=== PATIENT | female | born 1980 | race Hispanic/Latino ===

== ENCOUNTER 2018-07-25 17:25 | Inpatient (IN) | payer SELFPAY ==
[2018-07-25 18:11] LABS: #Eosinphils 0.1 thou/uL (0.0-0.7); #Lymphocytes 0.9 thou/uL (1.20-3.40); #Monocytes 0.4 thou/uL (0.11-0.59); #Neutrophils 2.7 thou/uL (1.40-6.50); %Basophils 0.7 % (0.0-1.0); %Eosinophils 1.3 % (0.0-10.0); %Lymphocytes 21.1 % (21.0-51.0); %Monocytes 9.3 % (0.0-10.0); %Neutrophils 67.6 % (42.0-75.0); Hemoglobin 11.7 g/dL (12.0-16.0); Mean Corpuscular HGB CONC 32.7 g/dL (32.0-36.0); Mean Corpuscular Hemoglobin 28.8 pg (27.0-31.0); Mean Corpuscular Volume 88.3 fL (78.0-98.0); Mean Platelet Volume 8.5 fL (7.4-10.4); Platelet Count 194 thou/uL (130-400); RBC Distribution Width 12.2 % (11.5-14.5); Red Blood Cell (RBC) Count 4.07 mill/uL (4.20-5.40)
[2018-07-25 19:07] LABS: ALT (SGPT) 11 U/L (8-55); AST (SGOT) 12 U/L (5-34); Albumin 4.4 g/dL (3.5-5.0); Alkaline Phosphatase 103 U/L (40-150); BUN (Urea Nitrogen) 55 mg/dL (7.0-18.7); Bilirubin, Total 0.2 mg/dL (0.2-1.2); Calc. Creatinine Clearance 0 mL/min (70-130); Carbon Dioxide 18 mmol/L (22-29); Chloride 108 mmol/L (98-107); Estimated GFR-MDRD 11; Globulin 3.5 g/dL (2.4-3.5); Glucose 87 mg/dL (70-105); Potassium 4.7 mmol/L (3.5-5.1); Protein, Total 7.9 g/dL (6.0-8.3); Sodium 136 mmol/L (136-145)
[2018-07-25 19:24] LABS: Bilirubin Negative (Negative); Blood, Urine Moderate (Negative); Clarity CLEAR (Clear); Glucose, Urine (Dipstick) Negative (Negative); Leukocyte Trace (Negative); Nitrite Negative (Negative); Protein, Urine (Dipstick) 100 mg/dL (Neg-Trace); Specific Gravity, Urine 1.007 (1.002-1.036); Urobilinogen 0.2 mg/dL (0.2-1.0)
[2018-07-25 19:28] LABS: Bacteria/HPF None Seen HPF (None Seen); Hyaline Casts/LPF 4-6 HYALINE CAST LPF (0-3 Hyaline); Squamous Epithelial 0-3 HPF (0-3); WBC/HPF 0-3 HPF (0-3)
[2018-07-25 19:42] LABS: Anion Gap 15 mmol/L (10-20)
[2018-07-25 20:14] LABS: Protein, Urine Random Quant 99 mg/dL (1-14); Sodium, Urine 62 mmol/L (Not Available)
[2018-07-25] MEDS ORDERED: Acetaminophen 325 MG TAB PO PRN (22:07)
[2018-07-25] MEDS ORDERED: Ondansetron PF 4 MG/2 ML Vial IVP PRN (22:07)
[2018-07-25] MEDS ORDERED: Ondansetron ODT 4 MG TAB SL PRN (22:07)
[2018-07-25 22:26] VITALS: BMI 21.0
[2018-07-25] MEDS: Sodium Chloride 0.45% 1,000 ML IV SCH ×2 (22:36→23:29)
--- NOTE | 2018-07-25 23:08 | ULT ---
RENAL SONOGRAM 07/25/18 HISTORY: Acute renal failure. FINDINGS: The right kidney measures 0.3 cm x 4.3 cm. The left kidney is smaller in size measuring 7.5 cm x 3.9 cm. There does appear to be mild renal cortical thinning and echogenic appearance of the renal cortex bilaterally which can be seen with chronic medical renal disease. There is no evidence of hydronephrosis, and no definite renal calculus is present. There is an anecho ic approximately 2.1 cm cystic lesion at the inferior pole right kidney demonstrating characteristics most compatible with a renal cyst. The urinary bladder has a normal sonographic appearance. IMPRESSION: 1. Mild renal cortical thinning and echogenic appearance of the renal cortex which can be seen w ith chronic medical renal disease. 2. Right renal cyst. 3. No evidence of hydronephrosis. POS: MAYRA
--- NOTE | 2018-07-26 00:27 | PDOC.EVN ---
Event Note - Event Note Event Note: h&p dictated [id number]
--- NOTE | 2018-07-26 01:11 | HP ---
DATE OF ADMISSION: 07/25/2018 PRIMARY CARE PHYSICIAN: Dr. Tulio Sharma. CHIEF COMPLAINT: Acute renal failure. 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 At the time of my evaluation, the patient's only positive history that over the last month, she has b een having increasing fatigability. REVIEW OF SYSTEMS: As per HPI. Constitutional: Denies any fevers, chills, or significant weight ch anges. HEENT: Denies any new headaches, vision changes, lightheadedness, or dizziness. Cardiovascu lar: Denies any chest pain, chest pressure, left-sided arm numbness, or tingling. Respiratory: Den ies any shortness of breath, cough, congestion, recent upper respiratory infection. Gastrointestinal : Denies any issues with nausea, vomiting, abdominal pain, diarrhea, or constipation. Genitourinary : Denies any dysuria, changes in his urinary frequency, quality, color or odor. Musculoskeletal: D enies any new myalgias or arthralgias. PAST MEDICAL HISTORY: As per HPI and significant for chronic renal disease, hypertension, prior hist ory of tubal ligation. HOME MEDICATIONS: Significant for some "blood pressure medications, which are currently not in the E MR" and the patient does not recall off the top of her head. ALLERGIES: No known drug allergies. FAMILY HISTORY: Patient denies any known family history of renal disease, renal failure, or urinary issues. SOCIAL HISTORY: Patient denies any alcohol, tobacco, or illicit drug use. PHYSICAL EXAMINATION: GENERAL: The patient is awake, alert, conversant, lying in the hospital bed. HEENT: Normocephalic, atraumatic. Equal ocular motions are intact, moist mucous membranes. CARDIOVASCULAR: S1, S2. No murmurs, rubs, or gallops. Pulses 2+ bilateral upper extremities, no pi tting pedal edema. RESPIRATORY: Reasonable air movement. No conversational dyspnea. No wheezes, rales, or rhonchi and grossly clear to auscultation bilaterally. GASTROINTESTINAL: Positive bowel sounds. Soft, nontender to palpation. GENITOURINARY: No CVA tenderness. LABORATORY DATA AND IMAGING: WBC 4.0, hemoglobin 11.7, hematocrit 35.9, platelets of 194. Sodium 13 6, potassium 4.7, chloride 108, bicarb 18, BUN 55, creatinine 4.53, glucose 87, calcium 9.8. Total b ilirubin 0.2, AST 12, ALT 11, alkaline phosphatase 103, total protein 7.9, albumin 4.4. UA is signif icant for 100 of protein, moderate blood, trace leukoesterase, 7-10 rbc's, 4-6 hyaline casts, 99 tota l protein, 31.18 urine creatinine. ASSESSMENT AND PLAN: This is a 38-year-old female presenting with acute kidney injury on chronic jose al disease. Patient currently has normal saline 75 mL an hour, running. Close intake and output. I appreciate Nephrology consultation. Repeat electrolytes, renal function panel in the morning. Che k ultrasound of the renal, bilaterally. Also, check a urine test. 1. Hypertension. Continue to monitor the patient's blood pressure, initiate antihypertensive regime n as needed. 2. Diet: Renal. 3. Activity: As tolerated. 4. Deep venous thrombosis prophylaxis with heparin. Admit the patient to inpatient.
[2018-07-26 05:47] LABS: Pregnancy Test - Urine (BHCG) Negative (Negative); Pregu Control Background? CLEAR/WHITE (CLR/WHITE); Pregu Control Bar Appear? YES (CONTROL BAR); Specific Gravity 1.008 (1.002-1.036)
[2018-07-26 06:05] LABS: #Eosinphils 0.1 thou/uL (0.0-0.7); #Lymphocytes 0.9 thou/uL (1.20-3.40); #Monocytes 0.5 thou/uL (0.11-0.59); #Neutrophils 2.9 thou/uL (1.40-6.50); %Basophils 1.1 % (0.0-1.0); %Eosinophils 2.2 % (0.0-10.0); %Lymphocytes 19.6 % (21.0-51.0); %Monocytes 10.5 % (0.0-10.0); %Neutrophils 66.6 % (42.0-75.0); Hemoglobin 10.8 g/dL (12.0-16.0); Mean Corpuscular HGB CONC 33.2 g/dL (32.0-36.0); Mean Corpuscular Hemoglobin 29.2 pg (27.0-31.0); Mean Corpuscular Volume 88.2 fL (78.0-98.0); Mean Platelet Volume 8.9 fL (7.4-10.4); Platelet Count 188 thou/uL (130-400); Red Blood Cell (RBC) Count 3.69 mill/uL (4.20-5.40); White Blood Cell (WBC) Count 4.4 thou/uL (4.8-10.8)
[2018-07-26 06:21] LABS: Anion Gap 10 mmol/L (10-20); BUN (Urea Nitrogen) 56 mg/dL (7.0-18.7); Calc. Creatinine Clearance 15 mL/min (70-130); Calcium 8.5 mg/dL (7.8-10.44); Carbon Dioxide 20 mmol/L (22-29); Chloride 109 mmol/L (98-107); Estimated GFR-MDRD 11; Glucose 90 mg/dL (70-105); Magnesium 2.3 mg/dL (1.6-2.6); Phosphorus 4.8 mg/dL (2.3-4.7); Potassium 4.5 mmol/L (3.5-5.1); Sodium 134 mmol/L (136-145)
[2018-07-26] MEDS ORDERED: Epoetin (ESRD) 20,000 UNITS/ML SC SCH (09:00)
[2018-07-26] MEDS: Heparin 5,000 UNITS/ML VIAL SC SCH ×3 (09:03→20:09)
[2018-07-26] MEDS: NIFEdipine XL 30 MG TAB PO SCH (10:50)
--- NOTE | 2018-07-26 10:55 | PDOC.PN ---
- Subjective Encounter Start Date: 07/26/18 Encounter Start Time: 10:45 Subjective: f/u for JENI/CKD with current IVF's. No current complaints. No home BP -: meds until 48h prior to admit per family report. - Objective Resuscitation Status: Resuscitation Status FULL:Full Resuscitation MAR Reviewed: Yes Vital Signs & Weight: Vital Signs (12 hours) Temp Pulse Resp BP Pulse Ox 07/26/18 07:34 97.9 F 79 18 132/83 98 07/26/18 05:29 98.0 F 87 18 122/81 98 Weight Weight 122 lb 11.2 oz I&O: 07/25/18 07/26/18 07/27/18 06:59 06:59 06:59 Intake Total 1160 Balance 1160 Result Diagrams: 07/26/18 05:17 07/26/18 05:17 Additional Labs: Laboratory Tests 07/25/18 07/25/18 07/26/18 17:58 17:58 05:13 Hgb 11.7 L Sodium 136 Carbon Dioxide 18 L BUN 55 H Creatinine 4.53 H Phosphorus Magnesium Urine Test Negative 07/26/18 05:17 Hgb Sodium Carbon Dioxide BUN Creatinine Phosphorus 4.8 H Magnesium 2.3 Urine Test Radiology Reviewed by me: Yes (Renal sono - no acute process, obstruction) Phys Exam - Physical Examination Constitutional: NAD HEENT: PERRLA, sclera anicteric, oral pharynx no lesions Neck: no nodes, no JVD, supple, full ROM Respiratory: no wheezing, no rales, no rhonchi, clear to auscultation bilateral S1, S2 Cardiovascular: RRR, no significant murmur, no rub, gallop Gastrointestinal: soft, non-tender, no distention, positive bowel sounds Musculoskeletal: no edema, pulses present Neurological: normal sensation, moves all 4 limbs Psychiatric: normal affect, A&O x 3 Skin: no rash, normal turgor, cap refill <2 seconds Dx/Plan (1) JENI (acute kidney injury) Code(s): N17.9 - ACUTE KIDNEY FAILURE, UNSPECIFIED Status: Acute Comment: Likely multifactorial and progression of CKD due to untreated HTN, continue IVF' s, avoid nephrotoxic meds and limit contrast exposure (2) CKD (chronic kidney disease) stage 3, GFR 30-59 ml/min Code(s): N18.3 - CHRONIC KIDNEY DISEASE, STAGE 3 (MODERATE) Status: Chronic Comment: Appears to have progressed, Nephrology consulted, see above (3) HTN (hypertension) Code(s): I10 - ESSENTIAL (PRIMARY) HYPERTENSION Status: Chronic Qualifiers: Hypertension type: essential hypertension Qualified Code(s): I10 - Essential (primary) hypertension Comment: Titrate antihypertensive regimen, Clonidine/Hydralazine prn (4) Normocytic anemia Code(s): D64.9 - ANEMIA, UNSPECIFIED Status: Chronic Comment: Epo per Nephrology, FeSO4 daily - Plan plan discussed w/ family, social worker psychiatric, DVT proph w/SCDs Stable currently -: Continue NS @ 75ml/h -: Nephrology consult appreciated -: Titrate BP regimen to optimal response -: AM lab: BMP, CBC * .
[2018-07-26] MEDS ORDERED: Acetaminophen 500 MG TAB PO PRN (11:03)
[2018-07-26] MEDS ORDERED: Ondansetron ODT 4 MG TAB PO PRN (11:03)
[2018-07-26] MEDS ORDERED: hydrALAZINE 20 MG/ML VIAL SLOW IVP PRN (11:03)
--- NOTE | 2018-07-26 11:58 | CON ---
DATE OF CONSULTATION: 07/26/2018 HISTORY OF PRESENT ILLNESS: Ms. Gutierrez is a 38-year-old female with chronic renal failur e secondary to presumed chronic glomerulonephritis. Her last creatinine back in 2016 was 1.69. She has not been in the clinic since then. Due to financial reason, she is unable to do the workup for h er glomerulonephritis. However, a recent imaging showed there is already increased cortical echogeni city with the kidney and pinning of the cortex. The patient on close questioning is symptomatic. Nasrin mendieta has been having nausea and vomiting. Her appetite is decreased. Energy level is decreased. We are being consulted for her chronic renal failure. REVIEW OF SYSTEMS: Decreased appetite, decreased energy level. Positive for nausea and vomiting. N o diarrhea, no constipation, no abdominal pain, no headache, no diplopia, no syncopal episode, no pro ductive cough, no fever or chills, no dysuria, no urinary frequency. MEDICATIONS: amlodipine/benazepril 07/21 one tab daily - frequency, last dose is unknown. PAST MEDICAL HISTORY: 1. Chronic renal failure secondary to presumed chronic GN. 2. Hypertension. PAST SURGICAL HISTORY: None. SOCIAL HISTORY: The patient is , originally from [place], [place] for 9 years. She lives [facility] for the last 3-1/2 years. She has no history of smoking or alcohol intake. She is also of Education in high school, ? primary grade. No drug abuse. No blood transfusion. FAMILY HISTORY: No family history of ESRD. ALLERGIES: None. TRAUMA: None. IMMUNIZATIONS: Up to date. HOSPITALIZATIONS: Please see past medical history. PHYSICAL EXAMINATION: VITAL SIGNS: Blood pressure 132/83, heart rate 79, respiratory rate 18, temperature 97.9, and pulse ox 98%. GENERAL: Awake, alert, supine, lethargic, not in overt distress. SKIN: Adequate turgor. HEENT: She has pinkish, slightly pale conjunctivae, anicteric sclerae. NECK: No neck mass, no carotid bruits, no JVD. CHEST: No deformities. LUNGS: Clear breath sounds, no wheezing, no crackles. HEART: Normal sinus rhythm. No murmur, no gallops, no rubs. ABDOMEN: Globular, soft, nontender, no masses. EXTREMITIES: No edema, no deformities. NEUROLOGIC: Moving all extremities. No tremors, no asterixis, no ataxia. HOSPITAL MEDICATIONS: Heparin 5000 units subcu t.i.d. LABORATORY DATA: Laboratories of 07/25/2018. Urinalysis showed a specific gravity 1.007 and protein is 100. Urine sodium is 62, urine creatinine is 31, urine protein 99. On 07/26/2018, sodium 134, potassium 4.5, chloride 109, carbon dioxide 20, BUN 56, creatinine 4.41, G FR 11 mL/minute, phosphorus 4.8, calcium 8.5, magnesium 2.3. ASSESSMENT AND PLAN: 1. Chronic renal failure secondary to presumed chronic glomerulonephritis. Renal function has deter iorated over the last 2 years. Her GFR has dropped down from 30 to 11 mL per minute. I feel that th is is disease progression. Imaging shows cortical thinning and increased echogenicity. I am not elver sed to proceed with a renal biopsy due to her advanced renal dysfunction. I think she is clinically uremic. I have offered this patient dialysis and they want to proceed with dialysis. However, due t o insurance issues, there may be a problem with this. However, we will consult the casework supervisor. 2. I will also do visit for a possible peritoneal dialysis. I did explain this to the patient and her daughter who helped me in the translation. 3. Hypertension. Start nifedipine 30 mg XL tab once a day. 4. Anemia. Start weekly Epogen. 5. Hyperphosphatemia - Renvela 800 mg 1 tab t.i.d. with meals. Agree with current management.
[2018-07-26] MEDS: Sevelamer Carbonate 800 MG TAB PO SCH ×2 (11:59→16:41)
[2018-07-26] MEDS: Sodium Chloride 0.9% 1,000 ML IV SCH (12:01)
[2018-07-26] MEDS: Ferrous Sulfate 325 MG TAB PO SCH (16:41)
--- NOTE | 2018-07-26 21:54 | ULT ---
BILATERAL UPPER EXTREMITY VENOUS MAPPIN07/26/18 HISTORY: End-stage renal disease. Patient needs dialysis access and formation of AV fistula. FINDINGS: Diaz scale, color flow, doppler evaluation of the bilateral upper extremity venous structures s perfo rmed with 2D imaging. There is normal lumen compressibility and flow in the bilateral axillary veins with normal flow seen within the bilateral subclavian veins. RIGHT UPPER EXTREMITY BRACHIAL ARTERY: 3.6 mm RADIAL ARTERY: 2.1 mm ULNAR ARTERY: 1.6 mm CEPHALIC VEIN Upper Arm: 1.7 mm Mid Arm: 2.2 mm Distal Arm: 2.3 mm Antecubital Fossa: 3.8 mm Proximal Forearm: 1.9 mm Mid Forearm: 2.1 mm Distal Forearm: 2 mm BASILIC VEIN Upper Arm: 3.1 mm Mid Arm: 3.7 mm Distal Arm: 3.4 mm Antecubital Fossa: 2.8 mm Proximal Forearm: 1.5 mm Mid Forearm: 1.2 mm Distal Forearm: 1.4 mm LEFT UPPER EXTREMITY BRACHIAL ARTERY: 3.3 mm RADIAL ARTERY: 2.2 mm ULNAR ARTERY: 1.4 mm CEPHALIC VEIN Upper Arm: 2.7 mm Mid Arm: 2.2 mm Distal Arm: 2.5 mm Antecubital Fossa: 3 mm Proximal Forearm: 1.8 mm Mid Forearm: 1.6 mm Distal Forearm: 1.7 mm BASILIC VEIN Upper Arm: 2.5 mm Mid Arm: 2.7 mm Distal Arm: 2.4 mm Antecubital Fossa: 2.2 mm Proximal Forearm: 1.8 mm Mid Forearm: 1.2 mm Distal Forearm: 1.1 mm IMPRESSION: Diameters of the cephalic and basilic veins as well as arterial diameters are as described as above. POS: MAYRA
[2018-07-27] MEDS: Sodium Chloride 0.9% 1,000 ML IV SCH ×3 (03:58→18:05)
[2018-07-27 06:33] LABS: #Eosinphils 0.1 thou/uL (0.0-0.7); #Lymphocytes 0.9 thou/uL (1.20-3.40); #Monocytes 0.3 thou/uL (0.11-0.59); #Neutrophils 1.6 thou/uL (1.40-6.50); %Basophils 0.6 % (0.0-1.0); %Eosinophils 2.2 % (0.0-10.0); %Monocytes 9.1 % (0.0-10.0); Hemoglobin 10.5 g/dL (12.0-16.0); Mean Corpuscular HGB CONC 33.9 g/dL (32.0-36.0); Mean Corpuscular Hemoglobin 29.9 pg (27.0-31.0); Mean Corpuscular Volume 88.2 fL (78.0-98.0); Platelet Count 169 thou/uL (130-400); RBC Distribution Width 11.9 % (11.5-14.5); Red Blood Cell (RBC) Count 3.52 mill/uL (4.20-5.40); White Blood Cell (WBC) Count 2.9 thou/uL (4.8-10.8)
[2018-07-27 06:55] LABS: Anion Gap 12 mmol/L (10-20); BUN (Urea Nitrogen) 55 mg/dL (7.0-18.7); Calc. Creatinine Clearance 16 mL/min (70-130); Calcium 8.8 mg/dL (7.8-10.44); Carbon Dioxide 17 mmol/L (22-29); Chloride 114 mmol/L (98-107); Estimated GFR-MDRD 12; Glucose 78 mg/dL (70-105); Magnesium 2.1 mg/dL (1.6-2.6); Phosphorus 4.6 mg/dL (2.3-4.7); Potassium 4.8 mmol/L (3.5-5.1); Sodium 138 mmol/L (136-145)
[2018-07-27] MEDS ORDERED: CEFAZOLIN/Water 2 GM/20 ML SYRINGE SLOW IVP SCH (08:30)
[2018-07-27] MEDS: Ferrous Sulfate 325 MG TAB PO SCH ×2 (09:12→16:52)
[2018-07-27] MEDS: NIFEdipine XL 30 MG TAB PO SCH (09:12)
[2018-07-27] MEDS: Heparin 5,000 UNITS/ML VIAL SC SCH ×2 (09:12→14:41)
[2018-07-27] MEDS: Sevelamer Carbonate 800 MG TAB PO SCH ×3 (09:12→16:53)
--- NOTE | 2018-07-27 09:15 | HP ---
HISTORY OF PRESENT ILLNESS: Ms. Deedee Gutierrez is a 38-year-old female with chronic hypertensio n, followed by Dr. Hilliard for long period of time, but lost to follow up recently who presents for admis lolly for end-stage renal disease. She has a GFR 12, potassium is 4.8. Patient is 3, para 3, status post bilateral tubal ligation. She is 5 foot, 4 inches, 122 pounds, 21 BMI. I have been ask ed to see her regarding option of peritoneal dialysis catheter and left arm fistula. She does not ne ed hemodialysis catheter at this time. They are working on insurance financial resources to begin di alysis. ALLERGIES: None. TOBACCO: None. ALCOHOL: None. MEDICATIONS: Amlodipine/benazepril (Lotrel) 10/20 daily, started on Procardia-XL 30 mg a day, iron, , Renvela 800 mg t.i.d. with meals. PAST SURGICAL HISTORY: Tubal ligation. PAST MEDICAL HISTORY: Hypertension. Patient is 3, para 3. SOCIAL HISTORY: The patient is [place]arag[place] speaking only. Her daughter is present to translate for her. FAMILY HISTORY: Noncontributory. REVIEW OF SYSTEMS: [place] noncontributory. 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 PHYSICAL EXAMINATION: GENERAL: 5 foot 4 inches, 122 pounds, 21 BMI, 98.1, 78, 150/83. HEENT: Unremarkable. LUNGS: Clear to auscultation. CARDIAC: Regular rate and rhythm without murmur or gallop. ABDOMEN: Soft, nontender, no hernias evident. EXTREMITIES: Unremarkable. Palpable radial pulses. On admission, she had a right antecubital IV th at has been removed urgently. She has a left hand Hep-Lock. Ultrasound vein mapping of both arms re vealed superior veins in left arm relative to the right. I have discussed with the patient the locat ion of her peritoneal dialysis catheter. ASSESSMENT AND PLAN: End-stage renal disease, to initiate dialysis soon, but does not need hemodialy sis catheter (per discussion with Dr. Hilliard) at this time. We will plan laparoscopic peritoneal dialys is catheter and left arm fistula. She understands the risks and benefits and consents. She may need a central line pending availability veins in her right hand.
--- NOTE | 2018-07-27 10:02 | PRG ---
DATE OF SERVICE: 07/27/2018 SUBJECTIVE: Ms. Gutierrez is a 38-year-old female admitted for chronic renal failure second rboert to presumed chronic GN. She may have been clinically uremic at home. I have consulted Surgery f or placement of PD catheter and AV fistula. She has been scheduled for placement of this dialysis ac cess today. No other complaints today. Still with decreased appetite. No chest pain or shortness o f breath. OBJECTIVE: VITAL SIGNS: Blood pressure 150/83, heart rate 78, respiratory rate 20, temperature 98.1, pulse ox 9 9. GENERAL: Awake, alert, comfortable, not in distress. SKIN: Adequate turgor. HEENT: Slightly pale conjunctivae, anicteric sclerae. NECK: No neck mass, no carotid bruits, no JVD. CHEST: No deformities. LUNGS: Clear breath sounds. No wheezing, no crackles. HEART: Normal sinus rhythm. No murmur, no gallops or rubs. ABDOMEN: Globular, soft, nontender, no masses. EXTREMITIES: No edema, no deformities. MEDICATIONS: Of 07/27/2018 was reviewed. LABORATORY DATA: Of 07/27/2018, white count 2.9, hemoglobin 10.5. Sodium 138, potassium 4.8, chlori de 114, carbon dioxide 17, BUN 55, creatinine 4.21, GFR 12 mL per minute, phosphorus 4.6, calcium 8.8 . ASSESSMENT AND PLAN: 1. Chronic renal failure/end-stage renal disease - PD catheter to be inserted as well as AV fistula. Upon insertion, we will try to find an outpatient dialysis placement for this patient. We will sta rt training her for peritoneal dialysis. 2. Anemia, on Epogen. 3. Hypertension. Continue current management. Continue nifedipine.
[2018-07-27] MEDS ORDERED: CEFAZOLIN/Water 2 GM/20 ML SYRINGE ONE (12:26)
[2018-07-27] MEDS ORDERED: Dexamethasone 20 MG/5 ML VIAL ONE (13:37)
[2018-07-27] MEDS ORDERED: Ondansetron PF 4 MG/2 ML Vial ONE (13:37)
[2018-07-27] MEDS ORDERED: PHENYLEPHRINE-NS 100 MCG/ML 10 ML SYRINGE ONE (13:37)
[2018-07-27] MEDS ORDERED: Heparin 10,000 UNITS/ 10 ML VIAL ONE (13:37)
[2018-07-27] MEDS ORDERED: PROPOFOL 200 MG/20 ML VIAL ONE (13:37)
[2018-07-27] MEDS ORDERED: Lidocaine 1% PF 5 ML VIAL ONE (13:37)
[2018-07-27] MEDS ORDERED: Glycopyrrolate 0.2 MG/ML 5 ML SYRINGE ONE (13:37)
[2018-07-27] MEDS ORDERED: Sodium Chloride 0.9% 0 ML ONE (13:57)
[2018-07-27] MEDS ORDERED: Ioversol 68 % 50 ML VIAL ONE (13:57)
[2018-07-27] MEDS ORDERED: Protamine Sulfate 50 MG/5 ML VIAL ONE ×2 (13:57→14:30)
[2018-07-27] MEDS ORDERED: Bupivacaine/Epinephrine 0.25% 30 ML VIAL ONE (13:57)
[2018-07-27] MEDS ORDERED: Fentanyl 100 MCG/2 ML VIAL ONE ×2 (14:26→16:30)
[2018-07-27] MEDS ORDERED: Heparin 10,000 UNITS/1 ML VIAL ONE (14:29)
[2018-07-27] MEDS ORDERED: Heparin 5,000 UNITS/ML VIAL ONE (14:29)
[2018-07-27] MEDS ORDERED: Bupivacaine HCl 0.5%/Epinephrine 1:200,000/PF 30 ml Vial ONE (14:30)
[2018-07-27] MEDS ORDERED: Lidocaine 2% PF 5 ML VIAL ONE (14:45)
[2018-07-27 15:02] LABS: ANA Symphony (Qualitative) Equivocal: See Note (Negative); dsDNA IgG Antibody 4.6 IU/mL (<10 Negative)
[2018-07-27] MEDS ORDERED: Promethazine HCl 25 MG/ML VIAL IM PRN (16:00)
[2018-07-27] MEDS ORDERED: Ondansetron HCl/PF 4 MG/2 ML Vial IVP PRN (16:00)
[2018-07-27] MEDS ORDERED: Promethazine HCl 25 MG/ML VIAL SLOW IVP PRN (16:00)
--- NOTE | 2018-07-27 18:35 | PDOC.PN ---
- Subjective Encounter Start Date: 07/27/18 Encounter Start Time: 13:00 Patient seen and examined for JENI. No new complaints. No overnight events - Objective Resuscitation Status: Resuscitation Status FULL:Full Resuscitation MAR Reviewed: Yes Vital Signs & Weight: Vital Signs (12 hours) Temp Pulse Resp BP BP Pulse Ox 07/27/18 17:05 97.9 F 94 24 H 146/81 H 98 07/27/18 09:12 79 152/95 H 07/27/18 07:55 97.9 F 79 16 152/95 H 98 Weight Weight 122 lb 11.2 oz I&O: 07/26/18 07/27/18 07/28/18 06:59 06:59 06:59 Intake Total 1160 1305 Balance 1160 1305 Result Diagrams: 07/27/18 04:58 07/27/18 04:58 Phys Exam - Physical Examination Constitutional: NAD Respiratory: no wheezing, no rhonchi Cardiovascular: RRR, no rub Gastrointestinal: soft, non-tender, positive bowel sounds Musculoskeletal: no edema Neurological: moves all 4 limbs Dx/Plan - Plan DVT proph w/SCDs 1. JENI/CKD 5/ ESRD Dialysis access, AM labs 2. Uremic symptoms due to #1 3. Secondary hyperparathyroidism 4. Anemia due to renal disease Cont iron supp Review of Systems - Review of Systems Respiratory: negative: Cough, Dry, Shortness of Breath, Hemoptysis, SOB with Excertion, Pleuritic Pain, Sputum, Wheezing Cardiovascular: negative: chest pain, palpitations, orthopnea, paroxysmal nocturnal dyspnea, edema, light headedness, other - Medications/Allergies Allergies/Adverse Reactions: Allergies Allergy/AdvReac Type Severity Reaction Status Date / Time No Known Drug Allergies Allergy Verified 07/26/18 00:54 Medications: Current Medications Acetaminophen (Tylenol) 1,000 mg PO Q6H PRN PRN Reason: Mild Pain (1-3) Cefazolin Sodium (Ancef) 2 gm SLOW IVP ONCALL-[facility] Clonidine (Catapres) 0.1 mg PO Q4H PRN PRN Reason: SBP > ____ Epoetin Yasir (Procrit) 7,500 units SC Q7D [facility] Last Admin: 07/26/18 10:49 Dose: 7,500 units Fentanyl (Pacu-Sublimaze) 50 mcg SLOW IVP Q10MIN PRN PRN Reason: Moderate to Severe Pain (6-10) Stop: 07/27/18 19:00 Ferrous Sulfate (Feosol) 325 mg PO BID-[facility] Last Admin: 07/27/18 16:52 Dose: Not Given Heparin Sodium (Porcine) (Heparin) 5,000 units SC TID [facility] Last Admin: 07/27/18 14:41 Dose: Not Given Hydralazine HCl (Apresoline) 10 mg SLOW IVP Q4H PRN PRN Reason: SBP > 180 and HR < 70 Sodium Chloride (Normal Saline 0.9%) 1,000 mls @ 75 mls/hr IV .[id number] [facility] Last Admin: 07/27/18 18:05 Dose: 1,000 mls Nifedipine (Procardia Xl) 30 mg PO DAILY [facility] Last Admin: 07/27/18 09:12 Dose: 30 mg Ondansetron HCl (Zofran Odt) 4 mg PO Q6H PRN PRN Reason: Nausea/Vomiting Ondansetron HCl (Zofran) 4 mg IVP Q6H PRN PRN Reason: Nausea/Vomiting Ondansetron HCl (Pacu-Zofran) 4 mg IVP ONE PRN PRN Reason: Nausea/Vomiting Stop: 07/27/18 19:00 Promethazine HCl (Pacu-Phenergan) 6.25 mg SLOW IVP ONE PRN PRN Reason: Nausea/Vomiting Stop: 07/27/18 19:00 Promethazine HCl (Pacu-Phenergan) 6.25 mg IM ONE PRN PRN Reason: Nausea/Vomiting Stop: 07/27/18 19:00 Saccharomyces Boulardii (Florastor) 250 mg PO DAILY [facility] Sevelamer Carbonate (Renvela) 800 mg PO TID-[facility] Last Admin: 07/27/18 16:53 Dose: Not Given Tramadol HCl (Ultram) 50 mg PO Q6H PRN PRN Reason: Moderate Pain (4-6) Tramadol HCl (Ultram) 100 mg PO Q6H PRN PRN Reason: Severe Pain (7-10)
[2018-07-27] MEDS: traMADol HCl 50 MG TAB PO PRN (18:46)
--- NOTE | 2018-07-27 19:05 | OP ---
DATE: 07/27/2018 PREOPERATIVE DIAGNOSES: Chronic kidney disease, will need dialysis soon. Patient of Dr. Iker blandon. Desires peritoneal dialysis, unfunded. POSTOPERATIVE DIAGNOSES: Chronic kidney disease, will need dialysis soon. Patient of Dr. Iker Hilliard. Desires peritoneal dialysis, unfunded. PROCEDURES: Laparoscopic peritoneal dialysis catheter; laparoscopic omentopexy; laparoscopic sling s utured to direct a PD catheter in the pelvis; left arm primary AV fistula, inflow proximal radial art tonio, outflow antecubital vein electroplating laborer, outflow cephalic vein upper arm only; retrograde antecubita l vein preserved. SURGEON: Samm Stevens MD ANESTHESIA: General. Local 0.25% Marcaine with epinephrine 60 mL mixed with 2% Xylocaine 10 mL. DESCRIPTION OF PROCEDURE: The patient was taken to the operating room where under general anesthesia , abdomen, left upper extremity, and axilla were prepared with ChloraPrep and draped in routine fashi on. Local anesthetic infiltrated into the skin and subcutaneous tissue about the operative site for the abdominal procedure and left upper extremity procedure. Bilateral subcostal lateral incisions we re made and pneumoperitoneum to 15 mmHg was obtained with the Veress needle, replacing it with a 5-mm port and laparoscope inserted. Contralateral 5-mm port was placed subcostal. 8-mm port was placed for counter incision in left paraumbilical directed caudally through the subcutaneous tissue penetrat ing the rectus sheath directed caudally, penetrating the peritoneum towards the pelvis under laparosc opic visualization. Double-cuffed pigtail peritoneal dialysis catheter was placed laparoscopically t hrough the 8-mm port. Withdrawn the port, placed in the internal cuff in the rectus sheath, and carmela ng a counter incision at the planned exit site inferiorly and slightly laterally, and using the Maryl and dissector placed through this exit site incision. It was directed towards a counterincision ebony umbilical, grasping the catheter and pulling it into the tunnel, placed an external cuff beneath the skin exit site. Subcutaneous tissue was approximated with 3-0 Monocryl, skin with subdermal 4-0 Redwood cryl, and DermaGlue applied. Peritoneal dialysis catheter flushed with heparinized saline solution 1 000 units heparin per mL, 10 mL. Sterile dressings were applied. At this point, omentopexy performe d with GraNee needle in the upper abdomen, placed a transabdominal fixation suture in the omentum hol ding to the upper abdomen, so that it would not reach into the pelvis. A sling suture of 2-0 Ethibon d placed percutaneously using the GraNee needle directing the catheter towards the pelvis. Abdominal cavity was otherwise unremarkable. No hernias noted. Good hemostasis was noted. Pneumoperitoneum was reduced. All instruments were removed and all skin incisions were approximated with subdermal 4- 0 Monocryl and DermaGlue applied. A longitudinal incision was made in the proximal volar forearm bel ow the antecubital fossa, carried through skin and subcutaneous tissue, and a good antecubital vein i dentified and dissected free. The patient was given 5000 units of heparin intravenously. Vein disse cted free and perforating branch dissected free. Branches were divided between clips and spatulated over branch points, interrogated with coronary dilators, passing coronary dilators from a 2 mm to a 4 -mm coronary dilator out the cephalic vein outflow unobstructed. The patient was given 6000 units of heparin intravenously and after adequate circulation time, the brachial, radial, and ulnar arteries, which had been dissected free and was clamped with vascular clamps. Longitudinal arteriotomy was ma de sharply, elongated with the Ralph scissors on the proximal radial artery and perforating branch of antecubital vein to side proximal radial artery anastomosis was created with continuous suture of 6- 0 Prolene. After completing the anastomosis, vascular clamps were released. Hemostasis gained with 6-0 Prolene. The patient was given protamine by Anesthesia 50 mg intravenously. Good hemostasis was noted. Good Doppler signal noted in the cephalic vein outflow upper arm. Subcutaneous tissue was a pproximated with 3-0 Monocryl, skin with subdermal 4-0 Monocryl, and DermaGlue applied.
[2018-07-27] MEDS ORDERED: Ondansetron PF 4 MG/2 ML Vial IVP SCH (19:45)
[2018-07-27] MEDS: Morphine 4 MG/ML VIAL SLOW IVP PRN (20:13)
[2018-07-27] MEDS ORDERED: Docusate 100 MG CAP PO SCH (21:00)
[2018-07-28] MEDS: Ondansetron PF 4 MG/2 ML Vial IVP PRN ×2 (04:10→10:50)
[2018-07-28] MEDS: traMADol HCl 50 MG TAB PO PRN ×3 (04:11→20:19)
[2018-07-28 06:14] LABS: Anion Gap 17 mmol/L (10-20); BUN (Urea Nitrogen) 52 mg/dL (7.0-18.7); Calc. Creatinine Clearance 15 mL/min (70-130); Calcium 8.7 mg/dL (7.8-10.44); Carbon Dioxide 13 mmol/L (22-29); Chloride 113 mmol/L (98-107); Estimated GFR-MDRD 11; Glucose 96 mg/dL (70-105); Potassium 5.7 mmol/L (3.5-5.1); Sodium 137 mmol/L (136-145)
[2018-07-28 06:19] LABS: HBCM Index 0.07 S/CO (0-0.79); Hep B Core Total Ab Non-Reactive (NonReactive); Hep B Core Total Index 0.08 S/CO (0-0.79); Hepatitis B Core IgM Abs Non-Reactive (NonReactive)
--- NOTE | 2018-07-28 07:40 | PRG ---
DATE OF SERVICE: 07/28/2018 SERVICE: Renal Medicine. SUBJECTIVE: Ms. Gutierrez is a 38-year-old female, who was admitted for chronic renal failu re. At that time, she was having some degree of nausea. The consideration for uremia remains. A pe ritoneal dialysis catheter and AV fistula placement has been done. No new complaints today. Still w ith some decreased appetite. She has complained of some postop pain. We are waiting for outpatient dialysis placement in this patient. Once the patient is accepted, we can discharge her to the dialys is unit where she can be trained for her peritoneal dialysis. PHYSICAL EXAMINATION: VITAL SIGNS: Blood pressure is 145/84, heart rate 103, respiratory rate 16, temperature 98.7, pulse ox 96%. GENERAL EXAM: Awake, alert, supine, comfortable. SKIN: Adequate turgor. HEENT: She has pinkish conjunctivae, anicteric sclerae. NECK: No neck mass, no carotid bruits, no JVD. CHEST: No deformities. LUNGS: Clear breath sounds. HEART: Normal sinus rhythm. No murmur, no gallops, no rubs. ABDOMEN: Globular, soft, nontender, no masses. Positive for PD catheter. EXTREMITIES: No edema. Positive for left AV fistula. Positive for bruit. Medications of 07/28/2018 were reviewed. LABORATORY DATA: Laboratories of 07/28/2018, sodium 137, potassium 5.7, chloride 113, carbon dioxide 13, BUN 52, creatinine 4.5, GFR 11 mL per minute, calcium 8.7. White count 2.9, hemoglobin 10.5. ASSESSMENT AND PLAN: 1. Chronic renal failure - GFR is 11 mL per minute. She is currently at stage 5 chronic renal failu re. PD catheter has been placed. We will initiate peritoneal dialysis with this patient once she is approved for outpatient dialysis placement. She will need a week's training and then initiate perit walker dialysis. 2. Mild hyperkalemia - discussed the case with nursing staff. Dietary consult will be done to guide them on a low potassium diet. 3. Anemia, on weekly Epogen and iron supplementation. 4. Metabolic acidosis. Sodium bicarbonate 650 mg p.o. t.i.d. was ordered. Recheck base met and CBC in a.m.
[2018-07-28] MEDS: Sodium Chloride 0.9% 1,000 ML IV SCH ×3 (07:44→20:12)
--- NOTE | 2018-07-28 08:00 | RAD ---
PORTABLE CHEST: Date: 07/28/18 HISTORY: Shortness of breath. Evaluation prior to dialysis. FINDINGS: Lungs appear clear of infiltrate. There is mild cardiomegaly without significant vascular congestion. IMPRESSION: No acute findings. POS: [facility]
[2018-07-28 08:07] LABS: Hep B Core Total Ab Non-Reactive (NonReactive); Hep B Core Total Index 0.09 S/CO (0-0.79); Hep B Surf AB Non-Reactive (NonReactive); Hep B Surf Ag Non-Reactive S/CO (NonReactive); Hep C IgG Ab Non-Reactive (NonReactive); Hep C Index 0.04 S/CO (0-0.79)
[2018-07-28] MEDS: Sodium Bicarbonate Tab 325 MG TAB PO SCH ×3 (08:54→20:12)
[2018-07-28] MEDS: NIFEdipine XL 30 MG TAB PO SCH (08:54)
[2018-07-28] MEDS: Saccharomyces boulardii 250 MG CAP PO SCH (08:54)
[2018-07-28] MEDS: Ferrous Sulfate 325 MG TAB PO SCH ×2 (08:54→16:34)
[2018-07-28] MEDS: Sevelamer Carbonate 800 MG TAB PO SCH ×3 (08:54→16:34)
[2018-07-28] MEDS ORDERED: Tuberculin PPD 0.1 ML VIAL I-DERMAL SCH (10:00)
[2018-07-28] MEDS: Morphine 4 MG/ML VIAL SLOW IVP PRN ×2 (10:44→15:00)
--- NOTE | 2018-07-28 15:28 | PDOC.PN ---
- Subjective Encounter Start Date: 07/28/18 Encounter Start Time: 12:00 Patient seen and examined for worsening CKD. No new complaints. No overnight events - Objective Resuscitation Status: Resuscitation Status FULL:Full Resuscitation MAR Reviewed: Yes Vital Signs & Weight: Vital Signs (12 hours) Temp Pulse Resp BP BP Pulse Ox 07/28/18 11:40 98.3 F 84 14 167/97 H 96 07/28/18 08:54 95 164/92 H 07/28/18 08:35 95 07/28/18 07:41 99.2 F 95 16 164/92 H 95 07/28/18 03:56 98.7 F 103 H 16 145/84 H 96 Weight Weight 122 lb 11.2 oz I&O: 07/27/18 07/28/18 07/29/18 06:59 06:59 06:59 Intake Total 1305 0 1000 Output Total 200 1475 Balance 4155 -200 -059 Result Diagrams: 07/27/18 04:58 07/28/18 05:19 Phys Exam - Physical Examination Constitutional: NAD Respiratory: no wheezing, no rhonchi Cardiovascular: RRR, no rub Gastrointestinal: soft, non-tender, positive bowel sounds Musculoskeletal: no edema Neurological: moves all 4 limbs Dx/Plan - Plan DVT proph w/SCDs 1. JENI/CKD 5/ ESRD / Hyperkalemia / Metabolic Acidosis s/p dialysis access, AM labs, Educated on renal diet Await Outpatient dialysis setup Sodium bicarb started 2. Uremic symptoms due to #1 3. Secondary hyperparathyroidism 4. Anemia due to renal disease Cont iron supp Review of Systems - Review of Systems Respiratory: negative: Cough, Dry, Shortness of Breath, Hemoptysis, SOB with Excertion, Pleuritic Pain, Sputum, Wheezing Cardiovascular: negative: chest pain, palpitations, orthopnea, paroxysmal nocturnal dyspnea, edema, light headedness, other - Medications/Allergies Allergies/Adverse Reactions: Allergies Allergy/AdvReac Type Severity Reaction Status Date / Time No Known Drug Allergies Allergy Verified 07/26/18 00:54 Medications: Current Medications Acetaminophen (Tylenol) 1,000 mg PO Q6H PRN PRN Reason: Mild Pain (1-3) Cefazolin Sodium (Ancef) 2 gm SLOW IVP ONCALL-OR [place] Clonidine (Catapres) 0.1 mg PO Q4H PRN PRN Reason: SBP > ____ Epoetin Yasir (Procrit) 7,500 units SC Q7D [facility] Last Admin: 07/26/18 10:49 Dose: 7,500 units Ferrous Sulfate (Feosol) 325 mg PO BID-[facility] Last Admin: 07/28/18 08:54 Dose: 325 mg Hydralazine HCl (Apresoline) 10 mg SLOW IVP Q4H PRN PRN Reason: SBP > 180 and HR < 70 Sodium Chloride (Normal Saline 0.9%) 1,000 mls @ 75 mls/hr IV .[id number] [facility] Last Admin: 07/28/18 07:44 Dose: Not Given Morphine Sulfate (Morphine) 4 mg SLOW IVP Q4H PRN PRN Reason: Moderate to Severe Pain (4-10) Last Admin: 07/28/18 15:00 Dose: 4 mg Nifedipine (Procardia Xl) 30 mg PO DAILY [facility] Last Admin: 07/28/18 08:54 Dose: 30 mg Read Ppd Test Site 0 each PO 1000 [facility] Stop: 07/31/18 10:01 Ondansetron HCl (Zofran Odt) 4 mg PO Q6H PRN PRN Reason: Nausea/Vomiting Ondansetron HCl (Zofran) 4 mg IVP Q6H PRN PRN Reason: Nausea/Vomiting Last Admin: 07/28/18 10:50 Dose: 4 mg Saccharomyces Boulardii (Florastor) 250 mg PO DAILY [facility] Last Admin: 07/28/18 08:54 Dose: 250 mg Sevelamer Carbonate ([facility]a) [facility] Last Admin: 07/28/18 12:53 Dose: 800 mg Sodium Bicarbonate (Bicarbonate, Sodium) 650 mg PO TID [facility] Last Admin: 07/28/18 13:56 Dose: 650 mg Tramadol HCl (Ultram) 50 mg PO Q6H PRN PRN Reason: Moderate Pain (4-6) Last Admin: 07/28/18 04:11 Dose: 50 mg Tramadol HCl (Ultram) 100 mg PO Q6H PRN PRN Reason: Severe Pain (7-10) Last Admin: 07/28/18 13:56 Dose: 100 mg
--- NOTE | 2018-07-28 16:12 | PRG ---
Ms. Gutierrez is doing well today. She has had some nausea and vomiting and things have been ordered for this. This may be related to her anesthesia and surgery, but also could be related to her uremi a. Yesterday, I discontinued her repeated blood draws to minimize blood draws to preserve her veins. She has a discomfort in the left arm was as expected after surgery. LABORATORY: Her CBC not ordered today. Her base met reveals a sodium of 137, potassium of 5.7, chlo ride 113, carbon dioxide 13, which is a progression of her acidosis from admission were CO2 was 18. BUN is 52, creatinine 4.5. GFR 11. PHYSICAL EXAMINATION: LUNGS: Clear to auscultation. CARDIAC: Regular rate and rhythm without murmur or gallop. ABDOMEN: Soft, nondistended. Surgical wounds well healed. Postoperative tenderness as expected. EXTREMITIES: Left arm, good thrill and bruit in her cephalic vein upper arm fistula. Surgical wound looks good in proximal forearm. ASSESSMENT AND PLAN: End-stage renal disease, may need dialysis prior to discharge. Dr. Hilliard is [place] to avoid this. She has a good functioning left arm fistula and peritoneal dialysis catheter can b e used in the future, she should have her dressings changed on her peritoneal dialysis catheter 3 to 7 days postoperatively. I have asked the manager rn case to arrange peritoneal dialysis nurse visit to kaycee lloyd the dressing, flush the catheter, began PD training. She could start using this PD catheter in as soon as 2 weeks. She is to see me in my office in 2-3 weeks. Diet and activity as tolerated. S he uses her left arm unrestricted and exercise it. At this point, I will see her as needed in this h ospitalization. She will be kept on hemodialysis catheter as necessary to initiate dialysis because of progressive acidosis and uremia.
[2018-07-28] MEDS: cloNIDine 0.1 MG TAB PO PRN (20:18)
[2018-07-29 06:20] LABS: #Eosinphils 0.1 thou/uL (0.0-0.7); #Lymphocytes 1.2 thou/uL (1.20-3.40); #Monocytes 0.6 thou/uL (0.11-0.59); #Neutrophils 3.3 thou/uL (1.40-6.50); %Basophils 0.6 % (0.0-1.0); %Eosinophils 1.3 % (0.0-10.0); %Lymphocytes 22.7 % (21.0-51.0); %Monocytes 12.3 % (0.0-10.0); %Neutrophils 63.1 % (42.0-75.0); Hemoglobin 9.1 g/dL (12.0-16.0); Mean Corpuscular HGB CONC 33.1 g/dL (32.0-36.0); Mean Corpuscular Hemoglobin 29.5 pg (27.0-31.0); Mean Corpuscular Volume 89.2 fL (78.0-98.0); Mean Platelet Volume 8.7 fL (7.4-10.4); Platelet Count 173 thou/uL (130-400); RBC Distribution Width 12.2 % (11.5-14.5); Red Blood Cell (RBC) Count 3.09 mill/uL (4.20-5.40); White Blood Cell (WBC) Count 5.2 thou/uL (4.8-10.8)
[2018-07-29 06:30] LABS: Anion Gap 12 mmol/L (10-20); BUN (Urea Nitrogen) 51 mg/dL (7.0-18.7); Calc. Creatinine Clearance 14 mL/min (70-130); Calcium 8.4 mg/dL (7.8-10.44); Carbon Dioxide 17 mmol/L (22-29); Chloride 110 mmol/L (98-107); Estimated GFR-MDRD 11; Glucose 81 mg/dL (70-105); Potassium 4.9 mmol/L (3.5-5.1); Sodium 134 mmol/L (136-145)
[2018-07-29] MEDS: Sodium Chloride 0.9% 1,000 ML IV SCH ×2 (06:44→09:37)
[2018-07-29] MEDS: Sodium Bicarbonate Tab 325 MG TAB PO SCH ×3 (09:32→20:53)
[2018-07-29] MEDS: Ferrous Sulfate 325 MG TAB PO SCH ×2 (09:32→17:10)
[2018-07-29] MEDS: Saccharomyces boulardii 250 MG CAP PO SCH (09:33)
[2018-07-29] MEDS: Sevelamer Carbonate 800 MG TAB PO SCH ×3 (09:33→17:10)
[2018-07-29] MEDS: NIFEdipine XL 30 MG TAB PO SCH (09:35)
--- NOTE | 2018-07-29 11:23 | PRG ---
DATE OF SERVICE: 07/29/2018 SUBJECTIVE: Ms. Gutierrez is a 38-year-old female, who was seen for her chronic renal failu re. She has a worsening renal dysfunction. A PD catheter has been placed as well as an AV fistula. We are awaiting outpatient dialysis approval with her. Her mild hyperkalemia is also improved with diet alone. No other complaints, no chest pain or shortness of breath. OBJECTIVE: VITAL SIGNS: Blood pressure 145/87, heart rate 76, respiratory rate 16, temperature 98.2, pulse ox 9 7%. GENERAL EXAM: Noted to be awake, alert, comfortable, sitting, not in distress. SKIN: Adequate turgor. HEENT: She has slightly pale conjunctivae, anicteric sclerae. NECK: No neck mass, no carotid bruits, no JVD. CHEST: No deformities. LUNGS: Clear breath sounds. No wheezing, no crackles. HEART: Normal sinus rhythm. No murmur, no gallops, no rubs. ABDOMEN: Globular, soft, nontender, no masses. EXTREMITIES: No edema, no deformities. Positive for PD catheter. Medications of 07/29/2018 reviewed. LABORATORY DATA: Laboratories of 07/29/2018, white count 5.2, hemoglobin 9.1. Sodium 134, potassium 4.9, chloride 110, carbon dioxide 17, BUN 51, creatinine 4.56, GFR 11 mL per minute. Calcium 8.4. ASSESSMENT AND PLAN: 1. Chronic renal failure/end-stage renal disease - peritoneal dialysis catheter has been placed. We are awaiting approval from the dialysis unit. Once she is approved, we will start training her on p eritoneal dialysis. No indication for any emergent hemodialysis. 2. Anemia, continuing weekly Epogen and ferrous sulfate. 3. Secondary hyperparathyroidism, on calcitriol. Agree with current management.
[2018-07-29] MEDS: cloNIDine 0.1 MG TAB PO PRN (15:12)
--- NOTE | 2018-07-29 17:15 | PDOC.PN ---
- Subjective Encounter Start Date: 07/29/18 Encounter Start Time: 11:00 Patient seen and examined for CKd. No new complaints. No overnight events - Objective Resuscitation Status: Resuscitation Status FULL:Full Resuscitation MAR Reviewed: Yes Vital Signs & Weight: Vital Signs (12 hours) Temp Pulse Resp BP BP Pulse Ox 07/29/18 15:12 170/105 H 07/29/18 15:05 98.4 F 92 18 170/105 H 99 07/29/18 11:41 98.2 F 91 16 152/94 H 100 07/29/18 09:35 76 145/87 H 07/29/18 07:11 98.2 F 76 16 145/87 H 97 Weight Weight 122 lb 11.2 oz I&O: 07/28/18 07/29/18 07/30/18 06:59 06:59 06:59 Intake Total 0 2300 Output Total 200 2075 Balance -200 225 Result Diagrams: 07/29/18 05:07 07/29/18 05:07 Phys Exam - Physical Examination Constitutional: NAD Neck: no JVD Respiratory: no wheezing, no rhonchi Musculoskeletal: no edema Neurological: moves all 4 limbs Dx/Plan - Plan DVT proph w/SCDs 1. JENI/CKD 5/ ESRD / Hyperkalemia / Metabolic Acidosis s/p dialysis access Await Outpatient dialysis setup Cont current meds as below, DC IVF 2. Uremic symptoms due to #1 3. Secondary hyperparathyroidism 4. Anemia due to renal disease Cont iron supp Review of Systems - Review of Systems Respiratory: negative: Cough, Dry, Shortness of Breath, Hemoptysis, SOB with Excertion, Pleuritic Pain, Sputum, Wheezing Cardiovascular: negative: chest pain, palpitations, orthopnea, paroxysmal nocturnal dyspnea, edema, light headedness, other - Medications/Allergies Allergies/Adverse Reactions: Allergies Allergy/AdvReac Type Severity Reaction Status Date / Time No Known Drug Allergies Allergy Verified 07/26/18 00:54 Medications: Current Medications Acetaminophen (Tylenol) 1,000 mg PO Q6H PRN PRN Reason: Mild Pain (1-3) Cefazolin Sodium (Ancef) 2 gm SLOW IVP ONCALL-OR [place] Clonidine (Catapres) 0.1 mg PO Q4H PRN PRN Reason: SBP > ____ Last Admin: 07/29/18 15:12 Dose: 0.1 mg Epoetin Yasir (Procrit) 7,500 units SC Q7D [facility] Last Admin: 07/26/18 10:49 Dose: 7,500 units [facility]ous [facility]ate ([facility]) [facility] Last Admin: 07/29/18 17:10 Dose: 325 mg Hydralazine HCl (Apresoline) 10 mg SLOW IVP Q4H PRN PRN Reason: SBP > 180 and HR < 70 Sodium Chloride (Normal Saline 0.9%) 1,000 mls @ 75 mls/hr IV .[id number] [facility] Last Admin: 07/29/18 09:37 Dose: 1,000 mls Morphine Sulfate (Morphine) 4 mg SLOW IVP Q4H PRN PRN Reason: Moderate to Severe Pain (4-10) Last Admin: 07/28/18 15:00 Dose: 4 mg Nifedipine (Procardia Xl) 30 mg PO DAILY [facility] Last Admin: 07/29/18 09:35 Dose: 30 mg Read Ppd Test Site 0 each PO 1000 [facility] Stop: 07/31/18 10:01 Ondansetron HCl (Zofran Odt) 4 mg PO Q6H PRN PRN Reason: Nausea/Vomiting Last Admin: 07/28/18 18:27 Dose: 4 mg Ondansetron HCl (Zofran) 4 mg IVP Q6H PRN PRN Reason: Nausea/Vomiting Last Admin: 07/28/18 10:50 Dose: 4 mg Saccharomyces Boulardii (Florastor) 250 mg PO DAILY [facility] Last Admin: 07/29/18 09:33 Dose: 250 mg Sevelamer Carbonate (Renvela) [facility] Last Admin: 07/29/18 17:10 Dose: 800 mg Sodium Bicarbonate (Bicarbonate, Sodium) 650 mg PO TID [facility] Last Admin: 07/29/18 15:12 Dose: 650 mg Tramadol HCl (Ultram) 50 mg PO Q6H PRN PRN Reason: Moderate Pain (4-6) Last Admin: 07/28/18 04:11 Dose: 50 mg Tramadol HCl (Ultram) 100 mg PO Q6H PRN PRN Reason: Severe Pain (7-10) Last Admin: 07/28/18 20:19 Dose: 100 mg
[2018-07-30] MEDS: Sodium Bicarbonate Tab 325 MG TAB PO SCH ×3 (08:05→21:37)
[2018-07-30] MEDS: Sevelamer Carbonate 800 MG TAB PO SCH ×3 (08:05→16:33)
[2018-07-30] MEDS: Ferrous Sulfate 325 MG TAB PO SCH ×2 (08:05→16:33)
[2018-07-30] MEDS: Saccharomyces boulardii 250 MG CAP PO SCH (08:05)
[2018-07-30] MEDS: NIFEdipine XL 30 MG TAB PO SCH (08:06)
--- NOTE | 2018-07-30 09:53 | PRG ---
DATE OF SERVICE: 07/30/2018 SERVICE: Renal Medicine. SUBJECTIVE: Ms. Gutierrez is a 38-year-old female with chronic renal failure, ESRD, and adm itted here for further management. A PD catheter has been placed as well as an AV fistula. We are a waiting acceptance in the outpatient dialysis. No other complaints today, doing well. OBJECTIVE: VITAL SIGNS: Blood pressure is 148/94, heart rate 82, respiratory rate 18, temperature 98.1, pulse o x 100%. GENERAL EXAM: Noted to be awake, alert, comfortable, not in distress. SKIN: Adequate turgor. HEENT: She has slightly pale conjunctivae, anicteric sclerae. NECK: No neck mass, no carotid bruits, no JVD. CHEST: No deformities. LUNGS: Clear breath sounds. No wheezing, no crackles. HEART: Normal sinus rhythm. No murmur, no gallops, no rubs. ABDOMEN: Globular, soft, nontender, no masses. EXTREMITIES: No edema, no deformities. Medications of 07/30/2018 were reviewed. LABORATORY DATA: Laboratories of 07/29/2018, white count 5.2, hemoglobin 9.1. Sodium 134, potassium 4.9, chloride 110, carbon dioxide 17, BUN 51, creatinine 4.56, calcium is 8.4. ASSESSMENT AND PLAN: 1. End-stage renal disease/chronic renal failure, continuing current supportive care. Awaiting outp atient dialysis placement. Initiate peritoneal dialysis training and treatment once she has an accep tance outside. 2. Anemia, continuing weekly Epogen. 3. Hypertension. Continue nifedipine. Agree with current management. Continue supportive care.
[2018-07-30] MEDS: READ PPD TEST SITE PO SCH ×2 (11:01→11:41)
--- NOTE | 2018-07-30 21:26 | PDOC.PN ---
- Subjective Encounter Start Date: 07/30/18 Encounter Start Time: 11:00 Patient seen and examined for ESRD. No new complaints. No overnight events - Objective Resuscitation Status: Resuscitation Status FULL:Full Resuscitation MAR Reviewed: Yes Vital Signs & Weight: Vital Signs (12 hours) Temp Pulse Resp BP Pulse Ox 07/30/18 20:00 98.5 F 20 L 87 H 132/79 99 07/30/18 11:12 97.9 F 80 18 153/89 H 98 Weight Weight 122 lb 11.2 oz I&O: 07/29/18 07/30/18 07/31/18 06:59 06:59 06:59 Intake Total 2300 2390 1050 Output Total 2075 Balance 225 2390 1050 Result Diagrams: 07/29/18 05:07 07/29/18 05:07 Phys Exam - Physical Examination Constitutional: NAD Respiratory: no wheezing, no rhonchi Cardiovascular: RRR, no rub Gastrointestinal: soft, non-tender, positive bowel sounds Musculoskeletal: no edema Neurological: moves all 4 limbs Dx/Plan - Plan DVT proph w/SCDs 1. JENI/CKD 5/ ESRD / Hyperkalemia / Metabolic Acidosis s/p dialysis access Await Outpatient dialysis setup Cont current meds as below, DC IVF 2. Uremic symptoms due to #1 3. Secondary hyperparathyroidism 4. Anemia due to renal disease Cont iron supp Review of Systems - Review of Systems Respiratory: negative: Cough, Dry, Shortness of Breath, Hemoptysis, SOB with Excertion, Pleuritic Pain, Sputum, Wheezing Cardiovascular: negative: chest pain, palpitations, orthopnea, paroxysmal nocturnal dyspnea, edema, light headedness, other - Medications/Allergies Allergies/Adverse Reactions: Allergies Allergy/AdvReac Type Severity Reaction Status Date / Time No Known Drug Allergies Allergy Verified 07/26/18 00:54 Medications: Current Medications Acetaminophen (Tylenol) 1,000 mg PO Q6H PRN PRN Reason: Mild Pain (1-3) Cefazolin Sodium (Ancef) 2 gm SLOW IVP ONCALL-OR [place] Clonidine (Catapres) 0.1 mg PO Q4H PRN PRN Reason: SBP > ____ Last Admin: 07/29/18 15:12 Dose: 0.1 mg Epoetin Yasir (Procrit) 7,500 units SC Q7D [facility] Last Admin: 07/26/18 10:49 Dose: 7,500 units Ferrous Sulfate (Feosol) 325 mg PO BID-[facility] Last Admin: 07/30/18 16:33 Dose: 325 mg Hydralazine HCl (Apresoline) 10 mg SLOW IVP Q4H PRN PRN Reason: SBP > 180 and HR < 70 Morphine Sulfate (Morphine) 4 mg SLOW IVP Q4H PRN PRN Reason: Moderate to Severe Pain (4-10) Last Admin: 07/28/18 15:00 Dose: 4 mg Nifedipine (Procardia Xl) 30 mg PO DAILY [facility] Last Admin: 07/30/18 08:06 Dose: 30 mg Read Ppd Test Site 0 each PO 1000 [facility] Stop: 07/31/18 10:01 Last Admin: 07/30/18 11:41 Dose: 1 each Ondansetron HCl (Zofran Odt) 4 mg PO Q6H PRN PRN Reason: Nausea/Vomiting Last Admin: 07/28/18 18:27 Dose: 4 mg Ondansetron HCl (Zofran) 4 mg IVP Q6H PRN PRN Reason: Nausea/Vomiting Last Admin: 07/28/18 10:50 Dose: 4 mg Saccharomyces Boulardii (Florastor) 250 mg PO DAILY [facility] Last Admin: 07/30/18 08:05 Dose: 250 mg Sevelamer Carbonate ([facility]a) [facility] Last Admin: 07/30/18 16:33 Dose: 800 mg Sodium Bicarbonate (Bicarbonate, Sodium) 650 mg PO TID [facility] Last Admin: 07/30/18 15:43 Dose: 650 mg Tramadol HCl (Ultram) 50 mg PO Q6H PRN PRN Reason: Moderate Pain (4-6) Last Admin: 07/28/18 04:11 Dose: 50 mg Tramadol HCl (Ultram) 100 mg PO Q6H PRN PRN Reason: Severe Pain (7-10) Last Admin: 07/28/18 20:19 Dose: 100 mg
[2018-07-30] MEDS ORDERED: diphenhydrAMINE 2% CREAM 28.4 GM TUBE TOP PRN ×2 (21:27→21:34)
[2018-07-30] MEDS ORDERED: diphenhydrAMINE 25 MG CAP PO PRN (21:27)
[2018-07-31] MEDS: Ferrous Sulfate 325 MG TAB PO SCH ×2 (08:11→16:49)
[2018-07-31] MEDS: Saccharomyces boulardii 250 MG CAP PO SCH (08:11)
[2018-07-31] MEDS: Sodium Bicarbonate Tab 325 MG TAB PO SCH ×2 (08:12→14:28)
[2018-07-31] MEDS: NIFEdipine XL 30 MG TAB PO SCH (08:12)
[2018-07-31] MEDS: Sevelamer Carbonate 800 MG TAB PO SCH ×3 (08:13→16:49)
[2018-07-31] MEDS: READ PPD TEST SITE PO SCH (09:52)
--- NOTE | 2018-07-31 12:47 | HP ---
SERVICE: Renal Medicine. HISTORY OF PRESENT ILLNESS: Ms. Gutierrez is a 38-year-old female who was admitted for [facility] alf renal failure. She was clinically uremic at that time. However, with volume repletion, there wa s some stabilization with the renal function. In the interim, a PD catheter, AV fistula has been amy roopa. She voices no new complaints today while waiting for dialysis outpatient placement. PHYSICAL EXAMINATION: VITAL SIGNS: Blood pressure 137/84, heart rate 83, respiratory rate 18, temperature 98.5, pulse ox 9 8%. GENERAL: Noted to be awake, alert, comfortable, not in distress. SKIN: Adequate turgor. HEENT: She has pinkish slightly pale conjunctivae, anicteric sclerae. NECK: No neck mass, no carotid bruits, no JVD. CHEST: No deformities. LUNGS: Clear breath sounds, no wheezing, no crackles. HEART: Normal sinus rhythm. No murmur, no gallops, no rubs. ABDOMEN: Globular, soft, nontender, no masses. EXTREMITIES: No edema, no deformities. MEDICATIONS: Medications of 07/29/2018 was reviewed. LABORATORY DATA: Laboratories of 07/29/2018, white count 5.2, hemoglobin 9.1. Sodium 134, potassium 4.9, chloride 110, carbon dioxide 17, BUN 51, creatinine 4.56, glucose 81, calcium 8.4. ASSESSMENT AND PLAN: 1. End-stage renal disease/chronic renal failure -- continue supportive care. Awaiting outpatient d ialysis placement. Once discharged, we will start training the patient on peritoneal dialysis. Ther e is no indication for any emergent hemodialysis with the patient at the present time. 2. Anemia, continuing weekly Epogen. 3. Secondary hyperparathyroidism, on calcitriol. Recheck base met and CBC in a.m.
[2018-07-31 15:40] VITALS: BP 162/97; TEMP 98.2
--- NOTE | 2018-07-31 21:11 | DIS ---
DATE OF DISCHARGE: 07/31/2018 DISCHARGE DISPOSITION: Home. FOLLOWUP: 1. Follow up with Magali Hidalgo in 1 week. 2. Follow up with Dr. Samm Stevens in 2-3 weeks. 3. Follow up with Dr. Hilliard for peritoneal dialysis management. ALLERGIES: No known drug allergies. The patient was seen and examined on the day. Denies any new complaints, no chest pain, shortness of breath, palpitations. DISCHARGE MEDICATIONS: Procardia-XL 30 mg daily, Renvela 800 mg three times daily bicarbonate 650 mg three times daily and ferrous sulfate 325 mg b.i.d. INPATIENT CONSULTANTS: Nephrology, Dr. Hilliard and General Surgery, Dr. Stevens. INPATIENT PROCEDURES: On 07/27/2018, patient underwent laparoscopic peritoneal dialysis catheter amy cement and left arm AV fistula. BRIEF HOSPITAL COURSE: Patient is a 38-year-old female with chronic renal insufficiency who was sent to the hospital [facility] due to worsening renal failure. Please refer to the history and physical for further details. The patient was admitted to the hospital with a diagnosis of JENI/CKD stage 5. She underwent peritone al dialysis catheter as well as left arm AV fistula. Peritoneal dialysis has been set up as outpatie nt. She appears stable for discharge. She has been cleared by consultants for discharge. FINAL DIAGNOSES: 1. Acute kidney injury on chronic kidney disease stage 5. 2. Hyperkalemia. 3. Metabolic acidosis. 4. Uremic symptoms secondary to #1. 5. Secondary hyperparathyroidism. 6. Anemia due to renal disease. Plan of care was discussed with the patient in detail. She stated understanding.
== END 2018-07-31 18:06 | disposition home or self-care (01) | DRG 674 ==
LOC: ERS 17:25 → SJJU 19:51
PROVIDERS: ADMIT Internal Medicine; ATTEND Internal Medicine
PROC: 0WHG43Z Insertion of Infusion Device into Peritoneal Cavity, Percutaneous Endoscopic Approach (ICD-10-PCS; principal; 2018-07-27)
PROC: 031C0ZF Bypass Left Radial Artery to Lower Arm Vein, Open Approach (ICD-10-PCS; 2018-07-27)
DX: N17.9 Acute kidney failure, unspecified (principal); I12.0 Hypertensive chronic kidney disease with stage 5 chronic kidney disease or end stage renal disease; E87.2 Acidosis; N18.5 Chronic kidney disease, stage 5; D63.1 Anemia in chronic kidney disease; E83.39 Other disorders of phosphorus metabolism; N25.81 Secondary hyperparathyroidism of renal origin; E87.5 Hyperkalemia
CPT/HCPCS: 36415; 71045; 76770; 80048; 80053; 81003; 81015; 81025; 82570; 83735; 84100; 84156; 84300; 85025; 86038; 86225; 86580; 86704; 86705; 86706; 86803; 87340; 93970; 96360; 96361; G0365; J0670; J1100; J1642; J1644; J2001; J2270; J2405; J2704; J2720; J3010; Q0162; Q4081; Q9967

== ENCOUNTER 2018-08-03 16:55 | Emergency (ER) | payer SELFPAY ==
[2018-08-03 18:06] LABS: #Lymphocytes 0.4 thou/uL (1.20-3.40); #Neutrophils 17.3 thou/uL (1.40-6.50); %Basophils 0.2 % (0.0-1.0); %Eosinophils 0.1 % (0.0-10.0); %Lymphocytes 2.3 % (21.0-51.0); %Monocytes 5.1 % (0.0-10.0); %Neutrophils 92.3 % (42.0-75.0); Mean Corpuscular HGB CONC 33.8 g/dL (32.0-36.0); Mean Corpuscular Hemoglobin 29.8 pg (27.0-31.0); Mean Corpuscular Volume 88.2 fL (78.0-98.0); Mean Platelet Volume 8.6 fL (7.4-10.4); Platelet Count 242 thou/uL (130-400); RBC Distribution Width 12.7 % (11.5-14.5); Red Blood Cell (RBC) Count 4.04 mill/uL (4.20-5.40); White Blood Cell (WBC) Count 18.7 thou/uL (4.8-10.8)
[2018-08-03 18:29] LABS: ALT (SGPT) 16 U/L (8-55); AST (SGOT) 18 U/L (5-34); Albumin 4.2 g/dL (3.5-5.0); Alkaline Phosphatase 103 U/L (40-150); Anion Gap 18 mmol/L (10-20); BUN (Urea Nitrogen) 59 mg/dL (7.0-18.7); Bilirubin, Total 0.2 mg/dL (0.2-1.2); CK (CPK) 37 U/L (29-168); Calc. Creatinine Clearance 0 mL/min (70-130); Calcium 9.3 mg/dL (7.8-10.44); Carbon Dioxide 15 mmol/L (22-29); Chloride 105 mmol/L (98-107); Estimated GFR-MDRD 15; Globulin 3.5 g/dL (2.4-3.5); Glucose 114 mg/dL (70-105); Potassium 4.7 mmol/L (3.5-5.1); Protein, Total 7.7 g/dL (6.0-8.3); Sodium 133 mmol/L (136-145)
[2018-08-03 18:30] LABS: CKMB 0.7 ng/mL (0-6.6); Troponin I Less than 0.010 ng/mL (< 0.028)
[2018-08-03 18:54] LABS: Bilirubin Negative (Negative); Blood, Urine Small (Negative); Clarity CLEAR (Clear); Glucose, Urine (Dipstick) Negative (Negative); Leukocyte Negative (Negative); Nitrite Negative (Negative); Protein, Urine (Dipstick) 100 mg/dL (Neg-Trace); Specific Gravity, Urine 1.009 (1.002-1.036); Urobilinogen 0.2 mg/dL (0.2-1.0)
[2018-08-03 18:56] LABS: Bacteria/HPF None Seen HPF (None Seen); Hyaline Casts/LPF 0-3 HYALINE CAST LPF (0-3 Hyaline); Pathc Cast-AUWi Flag 0.87 (0-2.49); Squamous Epithelial 0-3 HPF (0-3); WBC/HPF None Seen HPF (0-3)
[2018-08-03] MEDS ORDERED: Furosemide 40 MG/4 ML VIAL ONE (19:02)
[2018-08-03] MEDS ORDERED: Fentanyl 100 MCG/2 ML VIAL ONE (19:02)
[2018-08-03] MEDS ORDERED: Ondansetron PF 4 MG/2 ML Vial ONE (19:45)
--- NOTE | 2018-08-03 20:29 | RAD ---
HISTORY: Chest pain. AP view chest is obtained on 08/03/18. AP view chest demonstrates the lungs to be well aerated. No evidence of active intrathoracic disease seen. No evidence of effusions, pneumonia or pneumothorax seen. IMPRESSION: Unremarkable AP view chest. POS: [facility]
--- NOTE | 2018-08-03 20:43 | RAD ---
HISTORY: Constipation. AP view abdomen is obtained on 08/03/18. AP view abdomen demonstrates a large amount of stool seen in the rectum. This is compatible with federico re constipation. Stool was also seen in the ascending and descending colon. IMPRESSION: A large amount of stool in the colon. Findings compatible with constipation. No evidence of obstructi on seen. POS: [facility]
--- NOTE | 2018-08-03 21:32 | CT ---
NONCONTRAST ENHANCED CT IMAGES ABDOMEN AND PELVIS: 08/03/18 HISTORY: Constipation. Peritoneal dialysis catheter. Noncontrast enhanced CT images of the abdomen and pelvis demonstrates the lung bases to be unremarkab le. No evidence of free intraperitoneal air seen. The liver and spleen are unremarkable. The gallbladder and pancreas unremarkable. Adrenal glands unre markable. The kidneys are atrophied. A normal appendix is seen. The small bowel demonstrates no evidence of obstruction. A large amount of stool is seen in the colon. IMPRESSION: 1. Atrophied kidneys. 2. Large amount of stool in the colon, especially in the rectum. POS: [facility]
== END 2018-08-03 20:23 | disposition home or self-care (01) ==
LOC: ERS 16:55
DX: K56.41 Fecal impaction (principal); D72.829 Elevated white blood cell count, unspecified; Z79.899 Other long term (current) drug therapy
CPT/HCPCS: 36415; 51701; 71045; 74018; 74176; 80053; 81003; 81015; 82550; 82553; 84484; 85025; 87086; 93005; 96374; 96375; 99152; A4353; J1940; J2405; J3010

== ENCOUNTER 2018-09-06 14:45 | Outpatient (CLI) | payer OTHER ==
--- NOTE | 2018-09-06 18:51 | RAD ---
KUB: 09/06/18 COMPARISON: 08/03/18 HISTORY: Catheter placement. FINDINGS: The catheter tubing curls over the midline pelvis suggesting interval placement of a peritoneal dialy sis catheter. The bowel gas pattern is nonobstructed. IMPRESSION: Peritoneal dialysis catheter curling over the pelvis. POS: [facility]
== END 2018-09-06 14:46 | disposition home or self-care (01) ==
LOC: BICRAD 14:45
PROVIDERS: ATTEND Internal Medicine Nephrology
DX: T85.621A Displacement of intraperitoneal dialysis catheter, initial encounter (principal); N18.6 End stage renal disease
CPT/HCPCS: 74018

== ENCOUNTER 2021-02-01 15:57 | Outpatient (CLI) | payer OTHER | END 2021-02-01 15:58 | disposition home or self-care (01) | LOC: BICRAD 15:57 | PROVIDERS: ATTEND Internal Medicine Nephrology | DX: M25.512 Pain in left shoulder (principal); I51.7 Cardiomegaly | CPT/HCPCS: 71046 ==

== ENCOUNTER 2021-06-08 14:10 | Outpatient (CLI) | payer BC | END 2021-06-08 14:11 | disposition home or self-care (01) | LOC: BICRAD 14:10 | PROVIDERS: ATTEND Internal Medicine Nephrology | DX: T85.621A Displacement of intraperitoneal dialysis catheter, initial encounter (principal) | CPT/HCPCS: 74018 ==

== ENCOUNTER 2023-06-22 14:58 | Outpatient (CLI) | payer BC | END 2023-06-22 14:59 | disposition home or self-care (01) | LOC: BICRAD 14:58 | PROVIDERS: ATTEND Internal Medicine Nephrology | DX: R10.9 Unspecified abdominal pain (principal); Z99.2 Dependence on renal dialysis | CPT/HCPCS: 74018 ==